=== PATIENT | female | born 1945 | race Caucasian/White ===

== ENCOUNTER 2017-08-23 14:49 | Emergency (ER) | payer MEDICAID, MEDICARE ==
[~2017-08-23] VITALS: Ht 157.5 cm; Wt 80.0 kg
[2017-08-23] MEDS ORDERED: ONDANSETRON HCL 4MG/2ML VIAL IV STA (15:35)
[2017-08-23] MEDS ORDERED: KETOROLAC 30MG/ML VIAL IV STA (15:35)
[2017-08-23 15:53] LABS: BASOPHILS % 0.2 % (0.0-2.0); EOSINOPHILS % 1.9 % (0.0-5.0); HEMATOCRIT. 32.6 % (36.0-48.0); HEMOGLOBIN. 11.1 g/dL (12.0-16.0); LYMPHOCYTES % 33.1 % (20.0-50.0); MEAN CORPUSCULAR HEMOGLOBIN 30.6 pg (28.0-32.0); MEAN CORPUSCULAR VOLUME 89.7 fL (81.0-99.0); MONOCYTES % 12.8 % (2.0-8.0); PLATELET 142 x1000/uL (130-400); RED BLOOD CELL COUNT 3.63 mill/uL (4.2-5.4); RED CELL DISTRIBUTION WIDTH 13.5 % (11.6-14.6)
[2017-08-23 15:58] LABS: INR 1.1; PROTHROMBIN TIME 10.9 sec (9.4-11.6)
[2017-08-23 15:59] LABS: CHLORIDE 105 mEq/L (98-107)
[2017-08-23 16:38] LABS: CLARITY URINE CLEAR (CLEAR); COLOR URINE YELLOW (YELLOW); KETONES URINE NEGATIVE (NEGATIVE); LEUKOCYTE ESTERASE URINE NEGATIVE (NEGATIVE); NITRITE URINE POSITIVE (NEGATIVE); OCCULT BLOOD URINE 1+ (NEGATIVE); PROTEIN URINE NEGATIVE (NEGATIVE)
[2017-08-23 17:40] VITALS: BP 123/45
== END 2017-08-23 17:44 | disposition home or self-care (01) ==
LOC: ER 15:49
DX: N39.0 Urinary tract infection, site not specified (principal); R10.84 Generalized abdominal pain; I10 Essential (primary) hypertension; E78.00 Pure hypercholesterolemia, unspecified; E11.9 Type 2 diabetes mellitus without complications; Z90.49 Acquired absence of other specified parts of digestive tract; Z85.9 Personal history of malignant neoplasm, unspecified
CPT/HCPCS: 36415; 74176; 80053; 81003; 83690; 85025; 85610; 99285; J1885; J2405

== ENCOUNTER 2019-01-12 16:30 | Emergency (ER) | payer MEDICAID ==
[~2019-01-12] VITALS: Ht 165.1 cm; Wt 90.0 kg
[2019-01-12 20:15] LABS: BASOPHILS % 0.7 % (0.0-2.0); EOSINOPHILS % 6.9 % (0.0-5.0); HEMATOCRIT. 34.6 % (36.0-48.0); HEMOGLOBIN. 11.6 g/dL (12.0-16.0); LYMPHOCYTES % 24.9 % (20.0-50.0); MEAN CORPUSCULAR HEMOGLOBIN 31.6 pg (28.0-32.0); MEAN CORPUSCULAR VOLUME 94.1 fL (81.0-99.0); MEAN PLATELET VOLUME 9.1 fl (7.4-10.4); MONOCYTES % 11.8 % (2.0-8.0); NEUTROPHILS % 55.7 % (40.0-76.0); PLATELET 163 x1000/uL (130-400); RED BLOOD CELL COUNT 3.68 mill/uL (4.2-5.4); RED CELL DISTRIBUTION WIDTH 13.6 % (11.6-14.6)
[2019-01-12 20:17] LABS: CHLORIDE 104 mEq/L (98-107)
[2019-01-12 20:18] LABS: PROTHROMBIN TIME 10.4 sec (9.6-11.0)
[2019-01-12 21:40] LABS: CLARITY URINE CLEAR (CLEAR); COLOR URINE YELLOW (YELLOW); KETONES URINE NEGATIVE (NEGATIVE); LEUKOCYTE ESTERASE URINE NEGATIVE (NEGATIVE); NITRITE URINE NEGATIVE (NEGATIVE); OCCULT BLOOD URINE TRACE (NEGATIVE); PH URINE 5.5 (4.5-8.0); PROTEIN URINE NEGATIVE (NEGATIVE); SPECIFIC GRAVITY URINE 1.005 (1.005-1.030); UROBILINOGEN URINE 0.2 E.U./dL (0.2-1.0)
[2019-01-12] MEDS ORDERED: KETOROLAC 30MG/ML VIAL IV ONE (21:45)
[2019-01-12 21:53] VITALS: BP 124/57
== END 2019-01-12 22:53 | disposition home or self-care (01) ==
LOC: ER 16:30
DX: R10.13 Epigastric pain (principal); I10 Essential (primary) hypertension; E11.9 Type 2 diabetes mellitus without complications
CPT/HCPCS: 36415; 71045; 74176; 80053; 81003; 83690; 84484; 85025; 85610; 96374; 99284; J1885

== ENCOUNTER 2021-12-04 10:59 | Emergency (ER) | payer MEDICAID, OTHER ==
[~2021-12-04] VITALS: Ht 160 cm; Wt 76.0 kg
[2021-12-04] MEDS ORDERED: KETOROLAC 60MG/2ML VIAL IM STA (12:22)
[2021-12-04 12:41] LABS: BASOPHILS % 0.2 % (0.0-2.0); HEMATOCRIT. 36.7 % (36.0-48.0); HEMOGLOBIN. 12.3 g/dL (12.0-16.0); LYMPHOCYTES % 32.2 % (20.0-50.0); MEAN CORPUSCULAR HEMOGLOBIN 31.2 pg (28.0-32.0); MEAN CORPUSCULAR VOLUME 92.9 fL (81.0-99.0); MEAN PLATELET VOLUME 8.4 fl (7.4-10.4); MONOCYTES % 7.9 % (2.0-8.0); NEUTROPHILS % 56.7 % (40.0-76.0); PLATELET 159 x1000/uL (130-400); RED BLOOD CELL COUNT 3.95 mill/uL (4.2-5.4); RED CELL DISTRIBUTION WIDTH 13.1 % (11.6-14.6)
[2021-12-04 12:54] LABS: CHLORIDE 104 mEq/L (98-107)
[2021-12-04] MEDS ORDERED: DOXY100T2 MT (15:15)
[2021-12-04 15:19] LABS: CLARITY URINE CLEAR (CLEAR); COLOR URINE YELLOW (YELLOW); KETONES URINE NEGATIVE (NEGATIVE); LEUKOCYTE ESTERASE URINE 2+ (NEGATIVE); NITRITE URINE POSITIVE (NEGATIVE); OCCULT BLOOD URINE 1+ (NEGATIVE); PROTEIN URINE NEGATIVE (NEGATIVE); UROBILINOGEN URINE 0.2 E.U./dL (0.2-1.0)
[2021-12-04 15:24] VITALS: BP 149/55
== END 2021-12-04 15:31 | disposition home or self-care (01) ==
LOC: ER 10:59
DX: R19.7 Diarrhea, unspecified (principal); M54.59 Other low back pain; I10 Essential (primary) hypertension; E11.9 Type 2 diabetes mellitus without complications; E78.5 Hyperlipidemia, unspecified
CPT/HCPCS: 36415; 74176; 80053; 81003; 85025; 87077; 87186; 93005; 99285